=== PATIENT | female | born 1950 | race Caucasian/White ===

== ENCOUNTER 2020-01-11 11:07 | Emergency (ER) | payer MEDICARE, BC, SELFPAY ==
[2020-01-11 11:33] VITALS: BP 120/69; PULSE 70; RESP 16; TEMP 36.7; O2SAT 100
--- NOTE | 2020-01-11 11:34 | ED.EAR ---
HPI - Ear Problem General Chief complaint: Ear Stated complaint: Ear ache/URI Time Seen by Provider: 01/11/20 11:34 Source: patient and RN notes reviewed History of Present Illness HPI Narrative: Patient is a 69-year-old male that presents the urgent care with complaints of left ear pain that started today after having sinus drainage and cough for the last 3 days. 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 Patient states that she called her ENT who does not currently work in the office anymore and she was unable to get into the other ENT for 3 weeks. Patient denies any known fevers or drainage from the ear. No other acute complaints. No acute distress noted. Patient aware of the plan of care. Related Data Home Medications Medication Instructions Recorded Confirmed Calcium 1,200 mg 01/11/20 ascorbic acid (vitamin C) [Vitamin 01/11/20 C] cholecalciferol (vitamin D3) 1,000 unit PO DAILY 01/11/20 01/11/20 [Vitamin D3] donepezil mg 01/11/20 fiber 01/11/20 levothyroxine [Synthroid] 01/11/20 Allergies Allergy/AdvReac Type Severity Reaction Status Date / Time guaifenesin Allergy Unknown Verified 08/16/19 14:12 Sulfa (Sulfonamide Allergy Unknown Verified 12/16/14 10:22 Antibiotics) Review of Systems Review of Systems: Narrative: CONSTITUTIONAL: Denies fever, chills, or sweats. EYES: Denies visual changes, redness, or discharge. ENT: Reports of left otalgia and sinus drainage CARDIOVASCULAR: Denies chest pain, palpitations, or edema. RESPIRATORY: Denies cough or dyspnea. GASTROINTESTINAL: Denies abdominal pain, nausea, vomiting, or diarrhea. GENITOURINARY: Denies dysuria or hematuria. SKIN: Denies rash or itching. MUSCULOSKELETAL: Denies back pain, joint pain, or myalgia. NEUROLOGIC: Denies headache, numbness, or weakness. All other systems reviewed are negative, except as documented in HPI. [facility] Family History Family History (Updated 06/27/14 @ 07:13 by DOCTOR UNKNOWN) Father Family history of emphysema Mother Family history of malignant neoplasm of ovary Social History Social History Smoking status: Never smoker Alcohol intake: never Comments At the time of my signature, I reviewed and agree with the nursing past medical, surgical, social, and family history. There is no relevant family history pertinent to the patient complaint. Exam Narrative: Exam Narrative: GENERAL: This is a well-nourished, well-developed patient, in no apparent distress. HEAD: normocephalic, atraumatic. EYES: PERRL. Sclera clear/white. Vision is grossly intact. EARS: External ears normal, auditory canals clear and without drainage, injected erythemic left TM with moderate fluid noted behind the TM, right TMs normal without perforation. Hearing grossly intact. NOSE: External nose normal with no obvious nasal discharge, nares without redness, no rhinorrhea. THROAT: Mucous membranes moist, posterior pharynx clear. Mild postnasal drainage NECK: Neck supple CARDIOVASCULAR: Regular rate and rhythm without murmurs, gallops, or rubs. RESPIRATORY: Clear to auscultation. Breath sounds equal bilaterally. No wheezes, rales, or rhonchi. SKIN: warm, intact with no suspicious lesions or rash, good texture and turgor. NEURO: awake, alert, and oriented to person, place and time. There were no obvious focal neurologic abnormalities. EXTREMITIES: No clubbing, cyanosis, or edema. Course Vital Signs Vital signs: Vital Signs Temperature 98.0 F 01/11/20 11:33 Pulse Rate 70 01/11/20 11:33 Respiratory Rate 16 01/11/20 11:33 Blood Pressure 120/69 01/11/20 11:33 Pulse Oximetry 100 01/11/20 11:33 Temperature 98.0 F 01/11/20 11:33 Pulse Rate 70 01/11/20 11:33 Respiratory Rate 16 01/11/20 11:33 Blood Pressure 120/69 01/11/20 11:33 Pulse Oximetry 100 01/11/20 11:33 Reviewed Medical Decision Making MDM Narrativ
== END 2020-01-11 11:57 | disposition home or self-care (01) ==
PROVIDERS: Emergency Provider Nurse Practitioner Family; PCP Internal Medicine
DX: H66.92 Otitis media, unspecified, left ear (principal); E03.9 Hypothyroidism, unspecified
CPT/HCPCS: 99213; G0463

== ENCOUNTER 2020-02-11 06:34 | Outpatient (CLI) | payer MEDICARE, BC, SELFPAY ==
[2020-02-11 07:37] LABS: Hemoglobin A1C 5.9 % (<5.7)
[2020-02-11 07:42] LABS: Blood Urea Nitrogen 12 mg/dL (7-17); Calcium 8.9 mg/dL (8.4-10.2); Carbon Dioxide 28 mmol/L (22-30); Chloride 106 mmol/L (98-107); Cholesterol 206 mg/dL (0-200); Estimated Glomerular Filt Rate > 60; Glucose 95 mg/dL (65-105); HDL Direct 51 mg/dL; Potassium 4.4 mmol/L (3.4-5.0); Sodium 139 mmol/L (137-145); Triglycerides 75 mg/dL (<150)
[2020-02-11 07:53] LABS: LDL Cholesterol Direct 130 mg/dL
[2020-02-11 08:07] LABS: Vitamin D 25 Hydroxy 68.9 ng/mL
== END 2020-02-11 06:35 | disposition home or self-care (01) ==
PROVIDERS: PCP Internal Medicine; Visit Provider Internal Medicine
DX: R73.01 Impaired fasting glucose (principal); E78.5 Hyperlipidemia, unspecified; E03.9 Hypothyroidism, unspecified; E55.9 Vitamin D deficiency, unspecified
CPT/HCPCS: 36415; 80048; 80061; 82306; 83036; 84443

== ENCOUNTER → 2020-06-18 13:11 | Outpatient (CLI) | payer MEDICARE, BC, SELFPAY ==
--- NOTE | ~2020-06-18 | MR_ITS ---
EXAMINATION: MR brain/brain stem wo/w con DATE: 06/18/2020 14:18 INDICATION: Left-sided acoustic neuroma. TECHNIQUE: Magnetic resonance imaging (MRI) of the brain and brainstem was performed without and with 12 mL MultiHance intravenous contrast. Sequences included sagittal and axial T1-weighted FSE, axial diffusion-weighted FS EPI, axial T2*-weighted GRE, axial T2-weighted FLAIR Propeller, axial T2-weight ed Propeller, small yzzau-am-midk coronal FIESTA, small qpzpl-iz-wvxa coronal T1-weighted FSE, and sm all hmfwm-aa-jlfc axial T1-weighted SPGR. Postcontrast sequences included axial T1-weighted FSE, smal l epjrd-lp-ujjf coronal T1-weighted FSE, and small avjoz-ir-weco axial T1-weighted SPGR. Apparent dif fusion coefficient (ADC) maps were created. COMPARISON: Brain MRI 01/10/2017 FINDINGS: There is a 7 x 3 x 3 mm enhancing mass in the left internal auditory canal. There is no int racranial hemorrhage or acute ischemic infarct. The ventricles are normal in size. There is mucosal t hickening in the paranasal sinuses. The orbits are normal. The mastoid air cells are normal. IMPRESSION: 1. Stable 7 x 3 x 3 mm enhancing mass in the left internal auditory canal, consistent with a vestibul ar schwannoma. Reviewed, dictated and finalized at location A. IMPRESSION: 1. Stable 7 x 3 x 3 mm enhancing mass in the left internal auditory canal, cons istent with a vestibular schwannoma.
[2020-06-18 13:39] LABS: Estimated Glomerular Filt Rate > 60
== END ==
DX: D33.3 Benign neoplasm of cranial nerves (principal); H93.8X2 Other specified disorders of left ear
CPT/HCPCS: 36415; 70553; A9577

== ENCOUNTER 2020-07-05 15:25 | Emergency (ER) | payer MEDICARE, BC, SELFPAY ==
[2020-07-05 15:35] VITALS: BP 123/68; PULSE 63; RESP 18; TEMP 37.1; O2SAT 100
--- NOTE | 2020-07-05 15:38 | ED.SKABFB ---
HPI - Skin/Abscess/Foreign Bdy General Stated complaint: Infection in toe Time Seen by Provider: 07/05/20 15:38 Source: patient and RN notes reviewed History of Present Illness HPI narrative: Patient is 70-year-old female who presents the urgent care with complaints of infection in her toe. Patient states that she got her monthly pedicure a few days ago and noticed on Tuesday or that it became more painful and swollen. Patient states that it has been draining and she has been soaking it in plain Dial soap and water as well as using Neosporin. Patient denies of any fever, chills, nausea, vomiting. No other acute complaints. No acute distress noted. Patient read the plan of care. Related Data Home Medications Medication Instructions Recorded Confirmed Calcium 1,200 mg PO DAILY 01/11/20 07/05/20 ascorbic acid (vitamin C) [Vitamin 500 mg PO DAILY 01/11/20 07/05/20 C] cholecalciferol (vitamin D3) 1,000 unit PO DAILY 01/11/20 07/05/20 [Vitamin D3] donepezil 10 mg PO DAILY 01/11/20 07/05/20 prednisone 10 mg PO DAILY 07/05/20 07/05/20 Allergies Allergy/AdvReac Type Severity Reaction Status Date / Time guaifenesin Allergy Unknown Verified 08/16/19 14:12 Sulfa (Sulfonamide Allergy Unknown Verified 12/16/14 10:22 Antibiotics) Review of Systems Review of Systems: Narrative: CONSTITUTIONAL: Denies fever, chills, or sweats. EYES: Denies visual changes, redness, or discharge. ENT: Denies rhinorrhea, congestion, sore throat, or otalgia. CARDIOVASCULAR: Denies chest pain, palpitations, or edema. RESPIRATORY: Denies cough or dyspnea. GASTROINTESTINAL: Denies abdominal pain, nausea, vomiting, or diarrhea. GENITOURINARY: Denies dysuria or hematuria. SKIN: Reports of an infection to the third digit of the left foot with redness and swelling MUSCULOSKELETAL: Denies back pain, joint pain, or myalgia. NEUROLOGIC: Denies headache, numbness, or weakness. All other systems reviewed are negative, except as documented in HPI. [facility] Family History Family History (Updated 06/27/14 @ 07:13 by DOCTOR UNKNOWN) Father Family history of emphysema Mother Family history of malignant neoplasm of ovary Social History Social History Smoking status: Never smoker Alcohol intake: never Comments At the time of my signature, I reviewed and agree with the nursing past medical, surgical, social, and family history. There is no relevant family history pertinent to the patient complaint. Exam Narrative: Exam Narrative: GENERAL: This is a well-nourished, well-developed patient, in no apparent distress. HEAD: normocephalic, atraumatic. EYES: PERRL. Sclera clear/white. Vision is grossly intact. EARS: External ears normal NOSE: External nose normal with no obvious nasal discharge, nares without redness, no rhinorrhea. THROAT: Mucous membranes moist NECK: Neck supple SKIN: Notable paronychia to the third digit of the left foot on the lateral aspect with surrounding erythema and scant yellow drainage NEURO: awake, alert, and oriented to person, place and time. There were no obvious focal neurologic abnormalities. EXTREMITIES: Positive strong left pedal pulse with capillary refill less than 2 seconds. Course Vital Signs Vital signs: Vital Signs Temperature 98.8 F 07/05/20 15:35 Pulse Rate 63 07/05/20 15:35 Respiratory Rate 18 07/05/20 15:35 Blood Pressure 123/68 07/05/20 15:35 Pulse Oximetry 100 07/05/20 15:35 Temperature 98.8 F 07/05/20 15:35 Pulse Rate 63 07/05/20 15:35 Respiratory Rate 18 07/05/20 15:35 Blood Pressure 123/68 07/05/20 15:35 Pulse Oximetry 100 07/05/20 15:35 Reviewed MDM - Skin/Abscess/Foreign Bdy MDM Narrative Medical decision making narrative: Educated the patient on paronychias. Patient is aware that a paronychia does typically resolve on its own with antibiotic ointment and persistent cleanliness with Dial soap and water. Advised the patient to continue plain
== END 2020-07-05 15:50 | disposition home or self-care (01) ==
PROVIDERS: Emergency Provider Nurse Practitioner Family; PCP Internal Medicine
DX: L03.032 Cellulitis of left toe (principal); E03.9 Hypothyroidism, unspecified
CPT/HCPCS: 99213; G0463

== ENCOUNTER 2020-08-05 06:33 | Outpatient (CLI) | payer MEDICARE, BC, SELFPAY ==
[2020-08-05 08:00] LABS: Anion Gap 7 mmol/L (8-16); Blood Urea Nitrogen 15 mg/dL (7-17); Calcium 9.3 mg/dL (8.4-10.2); Carbon Dioxide 31 mmol/L (22-30); Chloride 105 mmol/L (98-107); Cholesterol 217 mg/dL (0-200); Estimated Glomerular Filt Rate > 60; Glucose 102 mg/dL (65-105); HDL Direct 60 mg/dL; Potassium 4.4 mmol/L (3.4-5.0); Sodium 143 mmol/L (137-145); Triglycerides 104 mg/dL (<150)
[2020-08-05 08:08] LABS: Hemoglobin A1C 5.6 % (<5.7)
[2020-08-05 08:10] LABS: LDL Cholesterol Direct 137 mg/dL
[2020-08-05 08:55] LABS: Vitamin D 25 Hydroxy 57.3 ng/mL
== END 2020-08-05 06:34 | disposition home or self-care (01) ==
PROVIDERS: PCP Internal Medicine; Visit Provider Internal Medicine
DX: E78.5 Hyperlipidemia, unspecified (principal); E03.9 Hypothyroidism, unspecified; R73.01 Impaired fasting glucose; E55.9 Vitamin D deficiency, unspecified
CPT/HCPCS: 36415; 80048; 80061; 82306; 83036; 84443

== ENCOUNTER → 2020-11-15 11:06 | Outpatient (CLI) | payer MEDICARE, BC, SELFPAY ==
--- NOTE | ~2020-11-15 | MM_ITS ---
EXAMINATION: MM screening katelyn BI w trudy HISTORY: Screening mammogram TECHNIQUE: Craniocaudal and mediolateral oblique 3-D tomosynthesis images were obtained and synthetic 2-D images were generated. CAD analysis was submitted and interpreted. COMPARISON: 10/30/2019, 09/26/2018, 08/30/2017 bilateral digital screening mammogram examinations BREAST PARENCHYMAL COMPOSITION: The breasts are almost entirely fatty. FINDINGS: There is no evidence of suspicious mass, calcification, or architectural distortion to sugg est malignancy in either breast. There has been no suspicious interval change. IMPRESSION: 1. No mammographic evidence of malignancy. 2. Recommend routine screening mammography in one year. BI-RADS Category 1: Negative Reviewed, dictated and finalized at location A. RMATION SYSTEMS DIRECTOR
== END ==
PROVIDERS: Visit Provider Internal Medicine
DX: Z12.31 Encounter for screening mammogram for malignant neoplasm of breast (principal)
CPT/HCPCS: 77063; 77067

== ENCOUNTER 2021-02-03 06:33 | Outpatient (CLI) | payer MEDICARE, BC, SELFPAY ==
[2021-02-03 08:18] LABS: Anion Gap 5 mmol/L (8-16); Blood Urea Nitrogen 15 mg/dL (7-17); Calcium 9.4 mg/dL (8.4-10.2); Carbon Dioxide 31 mmol/L (22-30); Chloride 106 mmol/L (98-107); Cholesterol 229 mg/dL (0-200); Estimated Glomerular Filt Rate > 60; Glucose 107 mg/dL (65-105); HDL Direct 64 mg/dL; Potassium 4.5 mmol/L (3.4-5.0); Sodium 142 mmol/L (137-145); Triglycerides 133 mg/dL (<150)
[2021-02-03 08:29] LABS: LDL Cholesterol Direct 130 mg/dL
[2021-02-03 08:34] LABS: Hemoglobin A1C 5.6 % (<5.7)
== END 2021-02-03 06:34 | disposition home or self-care (01) ==
PROVIDERS: PCP Internal Medicine; Visit Provider Internal Medicine
DX: R73.01 Impaired fasting glucose (principal); R73.03 Prediabetes; E78.5 Hyperlipidemia, unspecified; E03.9 Hypothyroidism, unspecified
CPT/HCPCS: 36415; 80048; 80061; 83036; 84443

== ENCOUNTER 2021-02-25 14:58 | Outpatient (CLI) | payer MEDICARE, BC, SELFPAY ==
--- NOTE | ~2021-02-25 | US_ITS ---
EXAMINATION: US carotid duplex BI DATE: 02/25/2021 15:28 INDICATION: Peripheral vascular disease TECHNIQUE: Grayscale, color Doppler, and pulsed Doppler images of the cervical carotid arteries were obtained. The degree of vessel stenosis is placed in one of the following categories: normal, <50%, 5 0-69%, >=70% but less than near-occlusion, near-occlusion, or total occlusion. Note that percent sten osis relative to normal distal artery lumen diameter is indirectly measured from velocity measurement s as described by Jase, et al. Radiology 2003; 229:340-346. Notes: Normal: Peak systolic velocity <125 centimeters/sec and no plaque <50%. Peak systolic velocity <125 ( EDV <40; ICA/CCA PSV ratio <2.0; used these factors only a tandem lesions or low cardiac output or co ntralateral disease) 50-69 %: PSV 125-230 (EDV 40-100; ratio 2-4) >= 70% but less than near occlusion: PSV greater than 230 (EDV > 100; ratio> 4.0) Near Occlusion: PSV that is variable; markedly narrowed lumen Occlusion: Absent flow on color/spectral Doppler and no lumen on houston scale. COMPARISON: None. FINDINGS: RIGHT: The right common carotid artery (CCA) peak systolic velocity (PSV) is 77 cm/s. The right internal car otid artery (ICA) PSV is 79 cm/s. The right ICA end-diastolic velocity (EDV) is 28 cm/s. The right IC A/CCA PSV ratio is 1.0. The external carotid artery (ECA) PSV is 88 cm/s. There is antegrade flow in the right vertebral artery. LEFT: The left CCA PSV is 83 cm/s. The left ICA PSV is 74 cm/s. The left ICA EDV is 30 cm/s. The left ICA/C CA PSV ratio is 0.9. The ECA PSV is 59 cm/s. There is antegrade flow in the left vertebral artery. IMPRESSION: 1. Less than 50% stenosis in the right internal carotid artery by sonographic criteria. 2. Less than 50% stenosis in the left internal carotid artery by sonographic criteria. Reviewed, dictated and finalized at location B. IMPRESSION: 1. Less than 50% stenosis in the right internal carotid artery by sonographic c akhil. 2. Less than 50% stenosis in the left internal carotid artery by sonographic joanie rubin.
== END 2021-02-25 14:59 | disposition home or self-care (01) ==
PROVIDERS: PCP Internal Medicine; Visit Provider Nurse Practitioner
DX: R09.89 Other specified symptoms and signs involving the circulatory and respiratory systems (principal); I65.23 Occlusion and stenosis of bilateral carotid arteries
CPT/HCPCS: 93880

== ENCOUNTER → 2021-06-02 12:21 | Outpatient (CLI) | payer MEDICARE, BC, SELFPAY ==
--- NOTE | ~2021-06-02 | DEXA_ITS ---
Bone Density Report Name: Agata Rob Age: 71 Sex: Female Ethnicity: White Date of : 1950 Indication: osteopenia; height loss; hysterectomy; postmenopausal Referring Provider: Maria Antonia Acuña Study: Bone densitometry was performed. Exam Date: June 02, 2021 Accession number: [id number] Bone Density: Region BMD T-score Z-score Classification AP Spine (L2, L3, L4) 0.994 -0.8 1.4 Normal Femoral Neck (Left) 0.655 -1.7 0.1 Osteopenia Total Hip (Left) 0.781 -1.3 0.2 Osteopenia Femoral Neck (Right) 0.659 -1.7 0.1 Osteopenia Total Hip (Right) 0.752 -1.6 0.0 Osteopenia Total Hip Mean 0.767 -1.5 0.1 Osteopenia World Health Organization criteria for BMD impression classify patients as: Normal (T-score at or above -1.0), Osteopenia (T-score between -1.0 and -2.5), or Osteoporosis (T-score at or below -2.5). 10-year Fracture Risk(1): Major Osteoporotic Fracture 11% Hip Fracture 1.8% Reported Risk Factors: [place] (), Neck BMD=0.659, BMI=27.1 (1) FRAX(R) Version 3.08. Fracture probability calculated for an untreated patient. Fracture probability may be lower if the patient has received treatment. Previous Exams: Region Exam Age BMD T-score BMD Change BMD Change Date g/cm2 vs Baseline vs Previous AP Spine(L2, L3, L4) 06/02/2021 71 0.994 -0.8 0.021 -0.019 05/31/2019 69 1.013 -0.6 0.040* -0.017 10/21/2016 66 1.030 -0.4 0.057* -0.012 01/23/2014 64 1.042 -0.3 0.069* 0.069* 12/16/2009 59 0.973 -1.0 Total Hip(Left) 06/02/2021 71 0.781 -1.3 -0.070* -0.014 05/31/2019 69 0.795 -1.2 -0.056* -0.027 10/21/2016 66 0.821 -1.0 -0.030* -0.014 01/23/2014 64 0.835 -0.9 -0.016 -0.016 12/16/2009 59 0.851 -0.7 Total Hip(Right) 06/02/2021 71 0.752 -1.6 -0.074* -0.024 05/31/2019 69 0.776 -1.4 -0.050* -0.041* 10/21/2016 66 0.817 -1.0 -0.009 -0.035* 01/23/2014 64 0.852 -0.7 0.026 0.026 12/16/2009 59 0.826 -0.9 *Denotes significance at 95% confidence level, LSC for AP Spine = 0.022 g/cm2, LSC for Total Hip = 0.027 g/cm2 Clinical Information Provided by Patient: Has used the following medications: Vitamin D, Calcium Has the following medical conditions: Hysterectomy Patient maximum height was 60.5 Menopause Age: 49 Drinks caffeinate
== END ==
PROVIDERS: PCP Internal Medicine; Visit Provider Nurse Practitioner
DX: M85.89 Other specified disorders of bone density and structure, multiple sites (principal); M85.852 Other specified disorders of bone density and structure, left thigh; M85.851 Other specified disorders of bone density and structure, right thigh
CPT/HCPCS: 77080

== ENCOUNTER → 2021-08-12 07:57 | Outpatient (CLI) | payer MEDICARE, BC, SELFPAY ==
[2021-08-12 19:23] LABS: SARS-CoV-2 RNA PCR Negative
== END ==
PROVIDERS: PCP Internal Medicine; Visit Provider Nurse Practitioner
DX: R68.89 Other general symptoms and signs (principal); Z20.822 Contact with and (suspected) exposure to COVID-19
CPT/HCPCS: C9803; U0003; U0005

== ENCOUNTER 2021-08-17 06:35 | Outpatient (CLI) | payer MEDICARE, BC, SELFPAY ==
[2021-08-17 07:28] LABS: Hemoglobin A1C 5.7 % (<5.7)
[2021-08-17 07:33] LABS: Alanine Aminotransferase 19 U/L (4-35); Albumin Level 4.4 g/dL (3.5-5.1); Alkaline Phosphatase 71 U/L (38-126); Anion Gap 5 mmol/L (8-16); Aspartate Amino Transferase 32 U/L (14-36); Bilirubin,Total 1.1 mg/dL (0.2-1.3); Blood Urea Nitrogen 21 mg/dL (7-17); Calcium 9.8 mg/dL (8.4-10.2); Carbon Dioxide 31 mmol/L (22-30); Chloride 106 mmol/L (98-107); Cholesterol 222 mg/dL (0-200); Estimated Glomerular Filt Rate > 60; Glucose 104 mg/dL (65-110); HDL Direct 58 mg/dL; Potassium 5.1 mmol/L (3.4-5.0); Sodium 142 mmol/L (137-145); Triglycerides 103 mg/dL (<150)
[2021-08-17 07:44] LABS: LDL Cholesterol Direct 129 mg/dL
[2021-08-17 10:34] LABS: Vitamin D 25 Hydroxy 65.7 ng/mL
== END 2021-08-17 06:36 | disposition home or self-care (01) ==
LOC: ANHLAB 06:39
PROVIDERS: PCP Internal Medicine; Visit Provider Nurse Practitioner
DX: R73.01 Impaired fasting glucose (principal); E78.5 Hyperlipidemia, unspecified; E55.9 Vitamin D deficiency, unspecified; E03.9 Hypothyroidism, unspecified
CPT/HCPCS: 36415; 80053; 80061; 82306; 83036; 84443

== ENCOUNTER 2021-12-13 08:06 | Emergency (ER) | payer MEDICARE, BC, SELFPAY ==
--- NOTE | 2021-12-13 08:13 | ED.URI ---
HPI - URI/Sore Throat General Chief Complaint: Upper Respiratory Infection Stated Complaint: madrigal/congestion Time Seen by Provider: 12/13/21 08:32 Source: patient and RN notes reviewed Mode of arrival: ambulatory Limitations: no limitations History of Present Illness HPI Narrative: 71-year-old female presents with concern for 2-day history of sinus congestion, rhinorrhea, headache. She reports symptoms started 2 days ago after she raked some leaves. She reports history of allergies and feels that she may have reacted to mold. She reports she took Mucinex without relief. She reports history of sinus infections. She reports she needs an antibiotic for resolution of symptoms. She denies fever, body aches, chills, sweats, cough. She has not taken antihistamines. MD elicited complaint: rhinorrhea and nasal congestion Related Data Home Medications Medication Instructions Recorded Confirmed Calcium 1,200 mg PO DAILY 01/11/20 12/13/21 ascorbic acid (vitamin C) [Vitamin 500 mg PO DAILY 01/11/20 12/13/21 C] cholecalciferol (vitamin D3) 1,000 unit PO DAILY 01/11/20 12/13/21 [Vitamin D3] donepezil 10 mg PO DAILY 01/11/20 12/13/21 Allergies Allergy/AdvReac Type Severity Reaction Status Date / Time guaifenesin Allergy Unknown Unknown Verified 12/13/21 08:29 Sulfa (Sulfonamide Allergy Unknown Unknown Verified 12/13/21 08:29 Antibiotics) Review of Systems Review of Systems: CONSTITUTIONAL: Denies malaise, chills, sweats, or fever. EYES: Denies visual changes, redness, or discharge. ENT: Reports rhinorrhea, congestion. Denies sinus pain, otalgia and sore throat. CARDIOVASCULAR: Denies chest pain, palpitations, or edema. RESPIRATORY: Reports cough. Denies dyspnea. GASTROINTESTINAL: Denies abdominal pain, nausea, vomiting, diarrhea SKIN: Denies rash or itching. MUSCULOSKELETAL: Denies myalgia. NEUROLOGIC: Reports headache. All systems reviewed & are unremarkable except as noted in HPI and below PMFSH Family History Family History Father Family history of emphysema Mother Family history of malignant neoplasm of ovary Social History Social History Smoking status: Never smoker Second hand tobacco smoke exposure: No Alcohol intake: never Substance use: never Substance use type: does not use Comments At time of signature, agree with nursing past medical, surgical, social and family history. There is no relevant family history pertinent to the presenting complaint Exam Narrative: GENERAL: Well-appearing, well-nourished, and in no acute distress. HEAD: Normocephalic EYES: PERRLA, conjunctivae clear ENT: Nares clear, turbinates edematous and erythematous, clear discharge. Mucous membranes moist. TM pearly houston with dull light reflex bilaterally; no tragal tenderness. Oropharynx not erythematous without lesions. Tonsils not enlarged and without exudate, no drooling, no hoarseness, no trismus, uvula midline. NECK: Supple. No lymphadenopathy CHEST: Clear to auscultation, breath sounds equal. No wheezing, rhonchi, rales, or stridor. No respiratory distress, speaks in full sentences. HEART: Regular rate and rhythm. No murmur heard. SKIN: Warm, dry, no rash. NEURO: Alert and oriented x3. PSYCH: Normal mood and affect Course Course Emergency Course: Discussed at length with patient pathophysiology of allergic rhinitis versus sinusitis versus bacterial sinusitis. Patient feels that she must have an antibiotic to improve her symptoms, antibiotic is not felt to be appropriate treatment at this time. Discussed with patient that I would prescribe medications to improve her symptoms, however an antibiotic is not appropriate. Patient is aware of diagnosis treatment plan. Anticipatory guidance given. Patient agrees to follow-up as directed and is aware of reasons to seek care at the emergency department. Portions o
[2021-12-13 08:17] VITALS: BP 118/75; PULSE 76; RESP 16; TEMP 37.1; O2SAT 99
== END 2021-12-13 08:50 | disposition home or self-care (01) ==
PROVIDERS: Emergency Provider Nurse Practitioner; PCP Internal Medicine
DX: J30.9 Allergic rhinitis, unspecified (principal); E03.9 Hypothyroidism, unspecified
CPT/HCPCS: 99213; G0463

== ENCOUNTER → 2021-12-25 12:18 | Outpatient (CLI) | payer MEDICARE, BC, SELFPAY ==
--- NOTE | ~2021-12-25 | MM_ITS ---
EXAMINATION: MM screening katelyn BI w trudy HISTORY: Screening mammogram TECHNIQUE: Craniocaudal and mediolateral oblique 3-D tomosynthesis images were obtained and synthetic 2-D images were generated. CAD analysis was submitted and interpreted. COMPARISON: 11/15/2020, 10/30/2019, 09/26/2018 bilateral screening mammogram examinations. Jamie and 1 Linear BREAST PARENCHYMAL COMPOSITION: The breasts are almost entirely fatty. FINDINGS: There is no evidence of suspicious mass, calcification, or architectural distortion to sugg est malignancy in either breast. There has been no suspicious interval change. IMPRESSION: 1. No mammographic evidence of malignancy. 2. Recommend routine screening mammography in one year. BI-RADS Category 1: Negative Reviewed, dictated and finalized at location A. RETREADER
== END ==
PROVIDERS: PCP Internal Medicine; Visit Provider Internal Medicine
DX: Z12.31 Encounter for screening mammogram for malignant neoplasm of breast (principal)
CPT/HCPCS: 77063; 77067

== ENCOUNTER 2022-02-26 06:31 | Outpatient (CLI) | payer MEDICARE, BC, SELFPAY ==
[2022-02-26 07:47] LABS: Alanine Aminotransferase 16 U/L (4-35); Albumin Level 3.9 g/dL (3.5-5.1); Alkaline Phosphatase 63 U/L (38-126); Anion Gap 6 mmol/L (8-16); Aspartate Amino Transferase 33 U/L (14-36); Bilirubin,Total 1.2 mg/dL (0.2-1.3); Blood Urea Nitrogen 14 mg/dL (7-17); Calcium 8.9 mg/dL (8.4-10.2); Carbon Dioxide 24 mmol/L (22-30); Chloride 108 mmol/L (98-107); Cholesterol 221 mg/dL (0-200); Estimated Glomerular Filt Rate > 60; Glucose 98 mg/dL (65-110); HDL Direct 55 mg/dL; Potassium 4.9 mmol/L (3.4-5.0); Sodium 138 mmol/L (137-145); Triglycerides 115 mg/dL (<150)
[2022-02-26 08:00] LABS: LDL Cholesterol Direct 118 mg/dL
[2022-02-26 08:17] LABS: Vitamin D 25 Hydroxy 55.9 ng/mL
[2022-02-26 08:45] LABS: Hemoglobin A1C 5.5 % (<5.7)
== END 2022-02-26 06:32 | disposition home or self-care (01) ==
LOC: ANHLAB 06:33
PROVIDERS: PCP Internal Medicine; Visit Provider Nurse Practitioner
DX: E78.5 Hyperlipidemia, unspecified (principal); E03.9 Hypothyroidism, unspecified; E55.9 Vitamin D deficiency, unspecified; R73.01 Impaired fasting glucose
CPT/HCPCS: 36415; 80053; 80061; 82306; 83036; 84443

== ENCOUNTER 2022-08-13 12:18 | Emergency (ER) | payer MEDICARE, BC, SELFPAY ==
[2022-08-13 12:26] VITALS: BP 138/70; PULSE 66; RESP 18; TEMP 36.3; O2SAT 100
--- NOTE | 2022-08-13 12:28 | ED.URI ---
HPI - URI/Sore Throat General Chief Complaint: Upper Respiratory Infection Stated Complaint: left ear pain and sore throat Time Seen by Provider: 08/13/22 12:30 Source: patient, RN notes reviewed and old records reviewed Mode of arrival: ambulatory Limitations: no limitations History of Present Illness HPI Narrative: 72-year-old female presents to the [facility] with complaints of sore throat and left ear pain that started today. Had tried Mucinex. Cold symptoms since Tuesday. Denies fevers, chest pain, abdominal pain Related Data Home Medications Medication Instructions Recorded Confirmed ascorbic acid (vitamin C) 500 mg 500 mg PO DAILY 01/11/20 08/13/22 tablet (Vitamin C) cholecalciferol (vitamin D3) 25 1,000 unit PO DAILY 01/11/20 08/13/22 mcg (1,000 unit) chewable tablet (Vitamin D3) Allergies Allergy/AdvReac Type Severity Reaction Status Date / Time guaifenesin Allergy Unknown Unknown Verified 03/05/22 13:51 Sulfa (Sulfonamide Allergy Unknown Unknown Verified 03/05/22 13:51 Antibiotics) Review of Systems Review of Systems: All systems reviewed & are unremarkable except as noted in HPI and below Constitutional: Constitutional: Reports no additional constitutional complaints, Denies chills and Denies fever(s) Eyes: Eyes: Reports no additional eye complaints ENT: Reports as per HPI and Reports sore throat Comments: Left ear pain Cardiovascular: Cardiovascular: Reports no additional cardiovascular complaints Respiratory: Respiratory: Reports no additional respiratory complaints Gastrointestinal: Gastrointestinal: Reports no additional gastrointestinal complaints Musculoskeletal: Musculoskeletal: Reports no additional musculoskeletal complaints Integumentary/Breasts: Skin/Breast: Reports system reviewed and no additional complaints, except as docu Neurologic: Reports system reviewed and no additional complaints, except as documented Psychiatric: Psychiatric: Reports no additional psychiatric complaints Allergic/Immunologic: Allergic/Immunologic: Reports no additional allergic/immunologic complaints [facility] Past Medical History Medical History (Updated 08/13/22 @ 20:23 by Xiomara Orourke APRN) Hyperlipidemia, unspecified Hypothyroidism (acquired) Postmenopausal Family History Family History Father Family history of emphysema Mother Family history of malignant neoplasm of ovary Social History Social History Smoking status: Never smoker Second hand tobacco smoke exposure: No Alcohol intake: never Substance use: never Substance use type: does not use Comments At the time of my signature, I reviewed and agree with the nursing past medical, surgical, social, and family history. There is no relevant family history pertinent to the patient complaint. Exam Const: General: healthy appearing, no acute distress, alert and well nourished Nutritional Appearance: well nourished Orientation/consciousness: patient oriented x3 Limitations: no limitations HENMT: Head: normal to inspection Ears: external ears normal, EAC's normal and TM abnormal bulging on the left and erythematous on the left Face/Nose/Sinus: Normal external nose present and Normal nares present Face and sinus: normal facial exam Mouth: Yes Normal oral and palatal mucosa present, Yes lip normal and Yes moist mucous membranes Throat: posterior oropharynx normal and uvula midline Eyes: General: appearance normal, both eyes and all related structures Conjunctivae: conjunctivae normal Pupils: Equal, round and reactive pupils present Neck: Neck: normal visual inspection, no lymphadenopathy and no meningeal signs Chest: Chest palpation & inspection: normal inspection of the chest Resp: Effort & Inspection: normal respiratory effort and no use of accessory muscles Auscultation: clear to auscultation bi
== END 2022-08-13 12:46 | disposition home or self-care (01) ==
PROVIDERS: Emergency Provider Nurse Practitioner; PCP Family Medicine
DX: H66.92 Otitis media, unspecified, left ear (principal); H65.01 Acute serous otitis media, right ear; E78.5 Hyperlipidemia, unspecified; E03.9 Hypothyroidism, unspecified
CPT/HCPCS: 99213; G0463

== ENCOUNTER 2022-09-06 06:35 | Outpatient (CLI) | payer MEDICARE, BC, SELFPAY ==
[2022-09-06 07:13] LABS: Alanine Aminotransferase 19 U/L (6-35); Albumin Level 4.6 g/dL (3.5-5.1); Alkaline Phosphatase 74 U/L (38-126); Anion Gap 10 mmol/L (8-16); Aspartate Amino Transferase 28 U/L (14-36); Blood Urea Nitrogen 15 mg/dL (7-17); Calcium 9.5 mg/dL (8.4-10.2); Carbon Dioxide 29 mmol/L (22-30); Chloride 105 mmol/L (98-107); Cholesterol 251 mg/dL (0-200); Estimated Glomerular Filt Rate > 60; Glucose 106 mg/dL (65-110); HDL Direct 63 mg/dL; Potassium 5.9 mmol/L (3.4-5.0); Sodium 144 mmol/L (137-145); Triglycerides 104 mg/dL (<150)
[2022-09-06 07:21] LABS: Hemoglobin A1C 5.8 % (<5.7)
[2022-09-06 07:24] LABS: LDL Cholesterol Direct 141 mg/dL
[2022-09-06 08:05] LABS: Vitamin D 25 Hydroxy 65.8 ng/mL
== END 2022-09-06 06:36 | disposition home or self-care (01) ==
PROVIDERS: PCP Family Medicine; Visit Provider Internal Medicine
DX: R73.01 Impaired fasting glucose (principal); Z79.899 Other long term (current) drug therapy; E55.9 Vitamin D deficiency, unspecified; E03.9 Hypothyroidism, unspecified; E78.5 Hyperlipidemia, unspecified
CPT/HCPCS: 36415; 80053; 80061; 82306; 83036; 84443

== ENCOUNTER → 2023-03-11 11:01 | Outpatient (CLI) | payer MEDICARE, BC, SELFPAY ==
--- NOTE | ~2023-03-11 | MM_ITS ---
EXAMINATION: MM screening katelyn BI w trudy HISTORY: Screening mammogram TECHNIQUE: Craniocaudal and mediolateral oblique 3-D tomosynthesis images were obtained and synthetic 2-D images were generated. CAD analysis was submitted and interpreted. COMPARISON: 12/25/2021, 11/15/2020, 10/30/2019 BREAST PARENCHYMAL COMPOSITION:The breasts are almost entirely fatty FINDINGS: No suspicious mass, calcification, or architectural distortion are identified in either amanda ast to suggest malignancy. There has been no suspicious interval change. IMPRESSION: No mammographic evidence of malignancy. Recommend routine screening mammography in one year. BI-RADS Category 1: Negative Reviewed, dictated and finalized at location .
== END ==
PROVIDERS: PCP Family Medicine; Visit Provider Family Medicine
DX: Z12.31 Encounter for screening mammogram for malignant neoplasm of breast (principal)
CPT/HCPCS: 77063; 77067

== ENCOUNTER → 2023-06-13 10:33 | Outpatient (CLI) | payer MEDICARE, BC, SELFPAY ==
--- NOTE | ~2023-06-13 | XR_ITS ---
EXAMINATION: XR shoulder RT min 2V DATE: 06/13/2023 10:49 INDICATION: Right shoulder pain TECHNIQUE: AP internally and externally rotated, AP oblique externally rotated and axillary views of the right shoulder were obtained. COMPARISON: None FINDINGS: Normal alignment. No fracture. Mild right glenohumeral osteoarthritis with cephalad predominant nonu niform joint space narrowing and small marginal osteophytes along the humeral head. Moderate acromioc lavicular osteoarthritis with small inferiorly directed osteophyte. Soft tissues are unremarkable. Vi sualized portions of the lungs are clear. IMPRESSION: Mild right glenohumeral and moderate acromioclavicular osteoarthritis. Reviewed, dictated and finalized at location A.
== END ==
PROVIDERS: PCP Family Medicine; Visit Provider Nurse Practitioner Family
DX: M19.011 Primary osteoarthritis, right shoulder (principal)
CPT/HCPCS: 73030

== ENCOUNTER → 2023-06-21 10:33 | Outpatient (CLI) | payer MEDICARE, BC, SELFPAY ==
--- NOTE | ~2023-06-21 | MR_ITS ---
EXAMINATION: MR shoulder RT wo con DATE: 06/21/2023 11:16 INDICATION: Right shoulder pain. TECHNIQUE: Magnetic resonance imaging (MRI) of the right shoulder was performed without intravenous c ontrast. Sequences included axial PD-weighted FS FSE, coronal oblique PD-weighted FS FSE and T2-weigh shakila FS FSE, and sagittal oblique T2-weighted FS FSE and T1-weighted FSE. COMPARISON: Right shoulder radiograph 06/13/2023 FINDINGS: Coracoacromial arch: The acromion undersurface is flat in morphology (type I). There is severe acromioclavicular joint ost eoarthritis including inferiorly directed osteophytes. There is mild subacromial/subdeltoid bursitis. Rotator cuff: There is moderate supraspinatus and infraspinatus tendinopathy. Teres minor tendon is normal. Subscap ularis tendon is normal. There is no asymmetric fatty atrophy of the rotator cuff muscle bellies. Biceps tendon and glenoid labrum: Biceps tendon is in bicipital groove. There is moderate intra-articular biceps tendinopathy. There is a tear of the superior labrum from 10:00 to 2:00 (SLAP tear). There is a 13 x 5 x 14 mm paralabral c yst. Fluid: There is a small glenohumeral joint effusion. Bones/cartilage: There is deep partial thickness cartilage loss of glenoid superoposteriorly. There is partial-thickne ss cartilage loss of humeral head, deep medially. Osteophytes are noted. IMPRESSION: 1. Moderate rotator cuff tendinopathy. No tear. 2. Moderate glenohumeral joint chondrosis. SLAP tear with paralabral cyst. 3. Severe acromioclavicular joint osteoarthritis. 4. Small glenohumeral joint effusion. 5. Mild subacromial/subdeltoid bursitis. 6. Moderate intra-articular biceps tendinopathy. Reviewed, dictated and finalized at location A.
== END ==
PROVIDERS: PCP Family Medicine; Visit Provider Nurse Practitioner Family
DX: M25.511 Pain in right shoulder (principal); M19.011 Primary osteoarthritis, right shoulder; M25.411 Effusion, right shoulder
CPT/HCPCS: 73221

== ENCOUNTER 2023-07-19 18:35 | Emergency (ER) | payer MEDICARE, BC, SELFPAY ==
[2023-07-19 18:46] VITALS: BP 129/67; PULSE 66; RESP 16; TEMP 36.5; O2SAT 100
--- NOTE | 2023-07-19 19:07 | ED.URI ---
HPI - URI/Sore Throat General Chief Complaint: Skin/Abscess/Foreign Body Stated Complaint: Nose Irritation Time Seen by Provider: 07/19/23 19:07 Source: patient, RN notes reviewed and old records reviewed Mode of arrival: ambulatory Limitations: no limitations History of Present Illness HPI Narrative: 73-year-old female presents to the [facility] with irritation and inflammation to the right Krishnan, outer aspect. States this started 3 days ago has been using antiviral cream to it. States is not getting any better. Tender to touch. No fluctuance. Induration noted Onset (ago): day(s) (3) Related Data Home Medications Medication Instructions Recorded Confirmed ascorbic acid (vitamin C) 500 mg 500 mg PO DAILY 01/11/20 07/19/23 tablet (Vitamin C) cholecalciferol (vitamin D3) 25 1,000 unit PO DAILY 01/20/23 07/19/23 mcg (1,000 unit) chewable tablet (Vitamin D3) Allergies Allergy/AdvReac Type Severity Reaction Status Date / Time guaifenesin Allergy Unknown Unknown Verified 07/19/23 18:57 Sulfa (Sulfonamide Allergy Unknown Unknown Verified 07/19/23 18:57 Antibiotics) Review of Systems Review of Systems: All systems reviewed & are unremarkable except as noted in HPI and below Constitutional: Constitutional: Reports no additional constitutional complaints Eyes: Eyes: Reports no additional eye complaints ENT: Reports as per HPI and Reports other (Right Krishnan, erythema 0.5 cm by 0.5 cm) Cardiovascular: Cardiovascular: Reports no additional cardiovascular complaints, Denies chest pain and Denies dyspnea Respiratory: Respiratory: Reports no additional respiratory complaints, Denies chest congestion, Denies cough and Denies dyspnea Gastrointestinal: Gastrointestinal: Reports no additional gastrointestinal complaints, Denies abdominal pain, Denies nausea and Denies vomiting Musculoskeletal: Musculoskeletal: Reports no additional musculoskeletal complaints Integumentary/Breasts: Skin/Breast: Reports system reviewed and no additional complaints, except as docu Neurologic: Reports system reviewed and no additional complaints, except as documented Psychiatric: Psychiatric: Reports no additional psychiatric complaints Allergic/Immunologic: Allergic/Immunologic: Reports no additional allergic/immunologic complaints [facility] Past Medical History Medical History (Updated 07/19/23 @ 19:16 by Xiomara Orourke APRN) Arthritis BMI 27.0-27.9,adult Breast cancer screening by mammogram normal mammogram 12/25/2021. Normal mammogram 03/11/2023. Decreased range of motion (ROM) of shoulder Environmental allergies Hyperlipidemia, unspecified Total cholesterol 251, triglycerides 104, HDL 63, LDL 141 09/06/2022. Hypothyroidism (acquired) TSH 1.78 09/06/2022. Otalgia of left ear Overweight (BMI 25.0-29.9) Postmenopausal Right carotid bruit Normal carotid Doppler studies 02/25/2021. Right shoulder pain Seasonal allergic rhinitis Family History Family History Father Family history of emphysema Mother Family history of malignant neoplasm of ovary Social History Social History Smoking status: Never smoker Second hand tobacco smoke exposure: No Alcohol intake: never Substance use: never Substance use type: does not use Lack of Transportation: No Lack of Food: Never True Current Housing: I Have Housing Concerned About Future Housing: No Difficulty Paying Gas/Electric Bills: No Difficulty Paying for Meds: No Currently Unemployed: No Education: High School Diploma/GED Difficulty w/ Childcare or Family Care: No Comments At the time of my signature, I reviewed and agree with the nursing past medical, surgical, social, and family history. There is no relevant family history pertinent to the patient complaint. Exam Const: General: cooperative, healthy appearing, comfortable, no acut
== END 2023-07-19 19:19 | disposition home or self-care (01) ==
PROVIDERS: Emergency Provider Nurse Practitioner; PCP Family Medicine
DX: J34.89 Other specified disorders of nose and nasal sinuses (principal); M19.90 Unspecified osteoarthritis, unspecified site; E78.5 Hyperlipidemia, unspecified; E03.9 Hypothyroidism, unspecified
CPT/HCPCS: 99213; G0463

== ENCOUNTER 2023-07-21 04:24 | Emergency (ER) | payer MEDICARE, BC, SELFPAY ==
[2023-07-21 04:26] VITALS: BP 141/64; PULSE 65; RESP 16; TEMP 36.2; O2SAT 100
--- NOTE | 2023-07-21 04:42 | PC.NURSE ---
Patient came up to triage nurse and stated that she was leaving and would call her doctor later today
== END 2023-07-21 04:42 | disposition left against medical advice (07) ==
PROVIDERS: PCP Family Medicine
DX: J34.89 Other specified disorders of nose and nasal sinuses (principal)
CPT/HCPCS: 99199

== ENCOUNTER 2023-07-21 16:17 | Outpatient (NON) | payer MEDICARE, BC, SELFPAY | END 2023-07-21 16:18 | disposition home or self-care (01) | PROVIDERS: PCP Family Medicine; Visit Provider Family Medicine | DX: L03.211 Cellulitis of face (principal); L02.01 Cutaneous abscess of face | CPT/HCPCS: 87070; 87075; 87147; 87181; 87186; 87205 ==

== ENCOUNTER 2023-08-10 06:32 | Outpatient (CLI) | payer MEDICARE, BC, SELFPAY ==
[2023-08-10 07:27] LABS: Appearance Urine Clear (Clear); Bilirubin Urine Negative (Negative); Blood Urine Negative (Negative); Color Urine Yellow (Yellow); Glucose Urine UA Negative (Negative); Ketones Urine Negative (Negative); Leukocyte Esterase Ur Negative LEU/UL (NEGATIVE); Nitrate Urine Negative (Negative); Protein Urine Negative (Negative); Specific Grav Ur 1.007 (1.001-1.035); Urobilinogen Urine 0.2 mg/dL (<2.0); pH Urine 6.5 (5.0-9.0)
[2023-08-10 07:30] LABS: Add Urine Microscopic? NO
[2023-08-10 07:30] LABS: Basophils Percent Auto 0.8 % (0.2-1.2); Eosinophils Absolute Auto 0.2 K/mm3 (0-0.3); Eosinophils Percent Auto 3.1 % (0-4.4); Hematocrit 42.3 % (37.0-47.0); Hemoglobin 13.4 g/dL (12.0-15.0); Immature Granulocyte Absolute 0.03 K/mm3 (0.00-0.031); Immature Granulocyte Percent A 0.6 % (0-0.5); Lymphocytes Absolute Auto 1.82 K/mm3 (0.9-3.2); Lymphocytes Percent Auto 34.8 % (18.3-44.2); Mean Corpuscular HGB Conc 31.7 g/dl (32-36); Mean Corpuscular Hemoglobin 28.6 pg (26-34); Mean Corpuscular Volume 90.4 fl (80-100); Mean Platelet Volume 10.4 fl (7.4-10.4); Monocytes Absolute Auto 0.4 K/mm3 (0.1-0.6); Neutrophils Absolute Auto 2.8 K/mm3 (1.3-6.7); Neutrophils Percent Auto 52.7 % (45.5-73.1); Platelet Count Result 287 k/mm3 (150-375); Red Blood Count 4.68 M/mm3 (4.2-5.4); White Blood Count 5.2 K/mm3 (4.5-10.0)
[2023-08-10 07:41] LABS: Alanine Aminotransferase 20 U/L (6-35); Albumin Level 4.2 g/dL (3.5-5.1); Alkaline Phosphatase 73 U/L (38-126); Anion Gap 4 mmol/L (8-16); Aspartate Amino Transferase 31 U/L (14-36); Bilirubin,Total 1.3 mg/dL (0.2-1.3); Blood Urea Nitrogen 12 mg/dL (7-17); Calcium 9.2 mg/dL (8.4-10.2); Carbon Dioxide 29 mmol/L (22-30); Chloride 104 mmol/L (98-107); Cholesterol 224 mg/dL (0-200); Estimated Glomerular Filt Rate > 60; Glucose 102 mg/dL (65-110); HDL Direct 62 mg/dL; Potassium 4.8 mmol/L (3.4-5.0); Sodium 137 mmol/L (137-145); Triglycerides 108 mg/dL (<150)
[2023-08-10 07:43] LABS: Hemoglobin A1C 5.5 % (<5.7)
[2023-08-10 07:52] LABS: LDL Cholesterol Direct 121 mg/dL
[2023-08-10 07:59] LABS: Free T4 Free Thyroxine 1.02 ng/mL (0.78-2.19)
[2023-08-10 08:52] LABS: Folic Acid 5.5 ng/mL (2.76->20); Vitamin B12 > 1000.0 pg/mL (239-931)
[2023-08-13 10:42] LABS: Vitamin D 1,25 (OH)2 Total 36 pg/mL (18-72); Vitamin D2 1,25 (OH)2 <8 pg/mL; Vitamin D3 1,25 (OH)2 36 pg/mL
== END 2023-08-10 06:33 | disposition home or self-care (01) ==
LOC: ANHLAB 06:34
PROVIDERS: PCP Family Medicine; Visit Provider Family Medicine
DX: R73.01 Impaired fasting glucose (principal); E78.2 Mixed hyperlipidemia; E78.5 Hyperlipidemia, unspecified; E55.9 Vitamin D deficiency, unspecified; E03.9 Hypothyroidism, unspecified; G47.33 Obstructive sleep apnea (adult) (pediatric); R41.3 Other amnesia
CPT/HCPCS: 36415; 80048; 80061; 80076; 81003; 82607; 82652; 82746; 83036; 84439; 84443; 85025

== ENCOUNTER 2024-02-21 07:17 | Outpatient (CLI) | payer MEDICARE, BC, SELFPAY ==
[2024-02-21 08:11] LABS: Alanine Aminotransferase 18 U/L (6-35); Albumin Level 4.3 g/dL (3.5-5.1); Alkaline Phosphatase 80 U/L (38-126); Anion Gap 3 mmol/L (4-12); Aspartate Amino Transferase 28 U/L (14-36); Bilirubin,Total 1.1 mg/dL (0.2-1.3); Blood Urea Nitrogen 14 mg/dL (7-17); Calcium 9.4 mg/dL (8.4-10.2); Carbon Dioxide 29 mmol/L (22-30); Chloride 105 mmol/L (98-107); Estimated Glomerular Filt Rate > 60; Glucose 113 mg/dL (65-110); HDL Direct 68 mg/dL; Potassium 4.4 mmol/L (3.4-5.0); Sodium 137 mmol/L (137-145); Triglycerides 117 mg/dL (<150)
[2024-02-21 08:19] LABS: LDL Cholesterol Direct 130 mg/dL
[2024-02-21 08:39] LABS: Free T4 Free Thyroxine 1.08 ng/mL (0.78-2.19)
[2024-02-21 08:46] LABS: Cholesterol 229 mg/dL (0-200)
[2024-02-21 17:49] LABS: Hemoglobin A1C 5.7 % (<5.7)
== END 2024-02-21 07:18 | disposition home or self-care (01) ==
LOC: ANHLAB 07:21
PROVIDERS: PCP Family Medicine; Visit Provider Family Medicine
DX: E03.9 Hypothyroidism, unspecified (principal); R73.01 Impaired fasting glucose; E78.2 Mixed hyperlipidemia
CPT/HCPCS: 36415; 80048; 80061; 80076; 83036; 84439; 84443

== ENCOUNTER 2024-06-18 14:30 | Outpatient (CLI) | payer MEDICARE, BC, SELFPAY ==
--- NOTE | ~2024-06-18 | MM_ITS ---
EXAMINATION: MM screening katelyn BI w trudy HISTORY: Screening TECHNIQUE: Craniocaudal and mediolateral oblique 3-D tomosynthesis images were obtained and synthetic 2-D images were generated. CAD analysis was submitted and interpreted. COMPARISON: Comparison to multiple prior studies sequentially, with oldest reviewed study dated 08/02. BREAST PARENCHYMAL COMPOSITION: Not dense: There are scattered areas of fibroglandular density. FINDINGS: There is no evidence of suspicious mass, calcification, or architectural distortion to sugg est malignancy in either breast. There has been no suspicious interval change. IMPRESSION: 1. No mammographic evidence of malignancy. 2. Recommend routine screening mammography in one year. BI-RADS Category 1: Negative Reviewed, dictated and finalized at location B.
== END 2024-06-18 14:31 ==
PROVIDERS: PCP Family Medicine; Visit Provider Family Medicine
DX: Z12.31 Encounter for screening mammogram for malignant neoplasm of breast (principal)
CPT/HCPCS: 77063; 77067

== ENCOUNTER 2024-10-10 09:02 | Outpatient (CLI) | payer MEDICARE, BC, SELFPAY ==
[2024-10-10 09:52] LABS: Add Urine Microscopic? NO; Appearance Urine Clear (Clear); Bilirubin Urine Negative (Negative); Blood Urine Negative (Negative); Color Urine Yellow (Yellow); Glucose Urine UA Negative (Negative); Ketones Urine Negative (Negative); Leukocyte Esterase Ur Negative LEU/UL (Negative); Nitrate Urine Negative (Negative); Protein Urine Negative (Negative); Specific Grav Ur 1.015 (1.001-1.035)
[2024-10-10 11:33] LABS: Creatinine Urine 60.1 mg/dL
[2024-10-10 11:48] LABS: Microalbumin Urine Random < 6.0 mg/L (0-16.7)
[2024-10-10 11:49] LABS: MALB Creatinine Ratio < 10.0 mg/g (0-30)
[2024-10-10 12:03] LABS: Alanine Aminotransferase 18 U/L (6-35); Albumin Level 4.6 g/dL (3.5-5.1); Alkaline Phosphatase 83 U/L (38-126); Anion Gap 8 mmol/L (4-12); Aspartate Amino Transferase 32 U/L (14-36); Bilirubin,Total 1.2 mg/dL (0.2-1.3); Blood Urea Nitrogen 11 mg/dL (7-17); Calcium 9.6 mg/dL (8.4-10.2); Carbon Dioxide 28 mmol/L (22-30); Chloride 107 mmol/L (98-107); Cholesterol 263 mg/dL (0-200); Estimated Glomerular Filt Rate > 60; Glucose 96 mg/dL (65-110); HDL Direct 71 mg/dL; Potassium 4.5 mmol/L (3.4-5.0); Sodium 143 mmol/L (137-145); Triglycerides 123 mg/dL (<150)
[2024-10-10 12:12] LABS: LDL Cholesterol Direct 150 mg/dL
[2024-10-10 12:20] LABS: Hemoglobin A1C 5.9 % (<5.7)
[2024-10-14 15:52] LABS: Vitamin D 1,25 (OH)2 Total 43 pg/mL (18-72); Vitamin D2 1,25 (OH)2 <8 pg/mL; Vitamin D3 1,25 (OH)2 43 pg/mL
== END 2024-10-10 09:03 | disposition home or self-care (01) ==
LOC: ANHLAB 09:03
PROVIDERS: PCP Family Medicine; Visit Provider Family Medicine
DX: E55.9 Vitamin D deficiency, unspecified (principal); E78.2 Mixed hyperlipidemia; E03.9 Hypothyroidism, unspecified; R73.01 Impaired fasting glucose
CPT/HCPCS: 36415; 80048; 80061; 80076; 81003; 82043; 82652; 83036; 84443

== ENCOUNTER 2025-05-29 06:38 | Outpatient (CLI) | payer MEDICARE, BC, SELFPAY ==
--- OUTSIDE RECORDS SUMMARY | 2025-05-29 06:42 | XMS_ITS | Referral Summary ---
Author Organization [facility] Address [address] [place] [address] Care Team Providers Care Orthopedic Assistant Name Role Phone Inocente Rubi Primary Care Provider [phone] Guanako Moody MD Unavailable [phone] Allergies Active Allergy Reactions Criticality Noted Date Comments Sulfa (Sulfonamide Antibiotics) Medications Synthroid 88 mcg tablet 0 Active predniSONE (DELTASONE) 10 mg tablet Take 6/day for 4 days, then 5 day for 4 days, then 3 day 4 days etc 84 tablet 0 Active Additional Information Patient not taking.Reported on 01/05/2021 mupirocin (BACTROBAN) 2 % ointment RODDY EXT AA BID 0 Active doxycycline (ADOXA) 100 mg tablet TK 1 T PO BID 0 Active cholecalciferol , vitamin D3, (VITAMIN D3 ORAL) Take by mouth Active ascorbic acid (VITAMIN C ORAL) Take by mouth Active CALCIUM ORAL Take by mouth Act juwan psyllium seed, with dextrose, (FIBER ORAL) Take by mouth Act juwan donepeziL (ARICEPT) 10 mg tabletIndicatio ns:Mild cognitive impairment Take 1 tablet (10 mg total) by mouth daily 90 tablet 3 1 Active Active Problems Problem Noted Date Diagnosed Date Mild cognitive impairment 01/05/2021 Assessment & Plan (01/05/2021 4:10 PM MERCHANDISING CONSULTANT): Patient's history of mild cognitive impairment. She has a prior patient of [facility] and prior medical records from [facility] including serial office visit notes, MRI reports, and laboratory assessments are all reviewed today. She continues on donepezil 10 mg daily. Current cognitive examination demonstrates mild cognitive loss. Her affect is normal. I will continue her donepezil 10 mg daily at this time. She understands that the goal of treatment would be to slow down any potential future progression relative to what it might be untreated. She understands and is requesting continuance. I will plan to see her back in the office in 1 year. Arthralgia of hip 02/27/2016 Pain of lower extremity 02/27/2016 Social History Tobacco Use Types Packs/Day Years Used Date Smoking Tobacco: Never Smokeless Tobacco: Never Personal Safety Answer Date Recorded Getting School Help Needed Not on file 12/24 Comments Unknown Sex and Gender Information Value Date Recorded Sex Assigned at Not on file Legal Sex Female 8:27 AM MERCHANDISING CONSULTANT Gender Identity Not on file Sexual Orientation Not on file Last Filed Vital Signs Vital Sign Reading Time Taken Comments Blood Pressure 100/70 01/05/2021 3:31 PM MERCHANDISING CONSULTANT Pulse 81 01/05/2021 3:31 PM MERCHANDISING CONSULTANT Temperature 36.8 C (98.2 F) 01/05/2021 3:31 PM MERCHANDISING CONSULTANT Respiratory Rate - - Oxygen Saturation - - Inhaled Oxygen Concentration - - Weight 60.9 kg (134 lb 3.2 oz) 01/05/2021 3:31 P M MERCHANDISING CONSULTANT Height 152.4 cm (5') 01/05/2021 3:31 PM MERCHANDISING CONSULTANT Body Mass Index 26.21 01/05/2021 3:31 PM MERCHANDISING CONSULTANT Plan of Treatment Not on file Insurance [facility]IC[facility] MEDICARE [facility] Care Teams Orthopedic Assistant Relationship Specialty Start Date End Date Inocente Rubi DO PCP - General Internal Medicine 06/24/20 Guanako Moody MD Referring Physician Otolaryngology 06/24/20
--- OUTSIDE RECORDS SUMMARY | 2025-05-29 06:42 | XMS_ITS | Clinical Summary ---
Author Organization Pending sale to [facility] Address [address] [place] [address] Care Team Providers Care Operating Room Manager Name Role Phone Inocente Rubi Primary Care Provider [phone] Guanako Moody MD Unavailable [phone] Allergies Active Allergy Reactions Criticality Noted Date [...] 01/05/2021 Assessment & Plan (01/05/2021 4:10 PM HOME HEALTH PROVIDER): Patient's history of mild cognitive impairment. She has a prior patient of [facility] and prior medical records from [facility] including serial office visit notes, MRI [...] hip 02/27/2016 Pain of lower extremity 02/27/2016 Surgical History Surgery Date Site/Laterality Comments CRANIECTOMY FOR EXCISION OF ACOUSTIC NEUROMA OOPHORECTOMY Medical History Medical History Date Comments Thyroid disease Family History Medical History Relation Name Comments COPD Father Lung disease Father Family history of lung disease - (Added by TW Conv) Cancer Mother Family history of malignant neoplasm - (Added by TW Conv) Kidney disease Mother Family histor y of kidney disease - (Added by TW Conv) Relation Name Status Comments Father Mother Social History Tobacco Use Types Packs/Day Years Used Date Smoking Tobacco: Never Smokeless Tobacco: Never Personal Safety Answer Date Recorded Getting School Help Needed Not on file 12/24 Comments Unknown Sex and Gender Information Value Date Recorded Sex Assigned at Not on file Legal Sex Female 8:27 AM HOME HEALTH PROVIDER Gender Identity Not on file Sexual Orientation Not on file Obstetrics History Last Filed Vital Signs Vital Sign Reading Time Taken Comments Blood Pressure 100/70 01/05/2021 3:31 PM HOME HEALTH PROVIDER Pulse 81 01/05/2021 3:31 PM HOME HEALTH PROVIDER Temperature 36.8 C (98.2 F) 01/05/2021 3:31 PM HOME HEALTH PROVIDER Respiratory Rate - - Oxygen Saturation - - Inhaled Oxygen Concentration - - Weight 60.9 kg (134 lb 3.2 oz) 01/05/2021 3:31 P M HOME HEALTH PROVIDER Height 152.4 cm (5') 01/05/2021 3:31 PM HOME HEALTH PROVIDER Body Mass Index 26.21 01/05/2021 3:31 PM HOME HEALTH PROVIDER Plan of Treatment Not on file Insurance MEDICARE [facility] MEDICARE [facility] Care Teams Operating Room Manager Relationship Specialty Start Date End Date Inocente Rubi DO PCP - General Internal Medicine 06/24/20 Guanako Moody MD Referring Physician Otolaryngology 06/24/20
--- OUTSIDE RECORDS SUMMARY | 2025-05-29 06:42 | XMS_ITS | Continuity of Care Document ---
Author Organization [facility] Address [address] [place] [address] Phone Care Team Providers Care Money Examiner Name Role Phone Rogers Briceño Unavailable Unavailable Procedures Procedure Date Office/outpatient Visit, Est Eye Exam & Treatment Refraction Eye Exam & Treatment Refraction Eye Exam & Treatment Refraction Advance Directives Directive Yes / No Effective Date File Name No Information Encounters Encounter Description Practice Location Reason(s) For Visit Diagnoses Date Provider Providers Copied on Encounter Office/outpat ient Visit, Est [facility], [id number] [place] [address] [address], [place], [place], [id number], tel:[phone] [facility] No Information 4-201 0 Krishnasamy Rogers. [address] [facility] [address], [place], [address], [place]. tel:[phone] [facility], [address] [place] [address] [address], [place], [place], [id number], [place] tel:[phone] [facility] [place] No Information 2-201 0 Krishnasamy Rogers. [address] [facility] [address], [place], [address], [place]. tel:[phone] [facility], [address], [place], [place], [id number], tel:[phone] [facility] [place] No Information Apr-0 8-200 8 Casillas OD Bart. [address] [facility] [facility] , [address], [place], [address], . tel:[phone] [facility], [address], [place], [place], [id number], [place] tel:[phone] [facility] No Information Feb-0 7-200 7 Casillas OD Bart. [address] , [address], [place], [place], [facility], [place]. tel:[phone] Family History Family Member Type Diagnosis Age At Onset No Information Payers Payer name Insurance type Covered [facility] [id number] Social History Type Description Quantity Date Captured Comments Sex Female Smoking Status No Information Chief Complaint And Reason For Visit No Information Reason For Referral Reason For Referral No Information History Of Present Illness Encounter Date Complaint History Of Prese nt Illness No Information Functional Status Date Functional Assessmen t No Information Instructions Date Instruction Additional Infor mation No Information Assessments Type Assessment Date No Information Patient Care Teams Name Effective Dates (start - stop) Status Members No Information
[2025-05-29 08:47] LABS: Alanine Aminotransferase 16 U/L (6-35); Albumin Level 4.1 g/dL (3.5-5.1); Alkaline Phosphatase 74 U/L (38-126); Anion Gap 7 mmol/L (4-12); Aspartate Amino Transferase 29 U/L (14-36); Bilirubin,Total 1.2 mg/dL (0.2-1.3); Blood Urea Nitrogen 10 mg/dL (7-17); Calcium 9.6 mg/dL (8.4-10.2); Carbon Dioxide 28 mmol/L (22-30); Chloride 107 mmol/L (98-107); Cholesterol 237 mg/dL (0-200); Estimated Glomerular Filt Rate > 60; Glucose 108 mg/dL (65-110); HDL Direct 56 mg/dL; Potassium 5.1 mmol/L (3.4-5.0); Sodium 142 mmol/L (137-145); Total Protein 7.0 g/dL (6.3-8.2); Triglycerides 113 mg/dL (<150)
[2025-05-29 09:24] LABS: Thyroid Stimulating Hormone 2.420 uIU/mL (0.465-4.680)
[2025-05-29 11:13] LABS: Hemoglobin A1C 6.0 % (<5.7)
== END 2025-05-29 06:39 | disposition home or self-care (01) ==
LOC: ANHLAB 06:41
PROVIDERS: PCP Family Medicine; Visit Provider Family Medicine
DX: R73.01 Impaired fasting glucose (principal); E78.2 Mixed hyperlipidemia; E03.9 Hypothyroidism, unspecified
CPT/HCPCS: 36415; 80048; 80061; 80076; 83036; 84443

== ENCOUNTER 2025-06-20 15:12 | Outpatient (CLI) | payer MEDICARE, BC, SELFPAY ==
--- NOTE | ~2025-06-20 | MM_ITS ---
EXAMINATION: MM screening katelyn BI w trudy HISTORY: Screening mammogram TECHNIQUE: Craniocaudal and mediolateral oblique 3-D tomosynthesis images were obtained and synthetic 2-D images were generated. CAD analysis was submitted and interpreted. COMPARISON: 06/18/2024, 03/19/2023, 12/25/2021 BREAST PARENCHYMAL COMPOSITION:Not Dense. The breasts are almost entirely fatty FINDINGS: No suspicious mass, calcification, or architectural distortion are identified in either breast to suggest malignancy. There has been no suspicious interval change. IMPRESSION: No mammographic evidence of malignancy. Recommend routine screening mammography in one year. BI-RADS Category 1: Negative Reviewed, dictated and finalized at location .
== END 2025-06-20 15:13 | disposition home or self-care (01) ==
PROVIDERS: PCP Family Medicine; Visit Provider Family Medicine
DX: Z12.31 Encounter for screening mammogram for malignant neoplasm of breast (principal)
CPT/HCPCS: 77063; 77067